=== PATIENT | female | born 1955 | race Caucasian/White ===

== ENCOUNTER 2018-04-16 19:24 | Emergency (ER) | payer OTHER ==
[~2018-04-16] VITALS: Ht 170.2 cm; Wt 89.4 kg
[2018-04-16 19:27] VITALS: BP 148/70
--- NOTE | 2018-04-16 20:55 | RAD ---
Indication:Fall. Pain over lateral aspect. 5th MT TECHNIQUE: 3 views of the left foot COMPARISON:None FINDINGS: There is nondisplaced fracture of the base of the fifth metatarsal seen. Overlying soft tissue swelling. IMPRESSION: Avulsion fracture of the base of the fifth metatarsal (pseudo-Brandon fracture). Electronically signed by: Juan Carlos Anderson DO (04/16/2018 8:52 PM) [facility]
[2018-04-16] MEDS ORDERED: HYDROcodone/APAP 5/325MG 1 TAB TABLET PO ONE (21:00)
--- NOTE | 2018-04-16 21:10 | PHYS DOC ---
Past Medical History Past Medical History: Anxiety, High Cholesterol, Hypertension, Hypothyroid, TIA Past Surgical History: Knee Replacement Additional Past Surgical Histo: RIGHT KNEE Alcohol Use: None Drug Use: None Adult General Chief Complaint Chief Complaint: FOOT INJURY PAIN HPI HPI Patient is a 62 year old female who presents with left foot injury. The patient had a mechanical fall earlier today. She relates that she has been inversion type injury of the left foot. She presents to the ER complaining of pain and swelling. Pain is swelling are located over the lateral aspect of the foot. She has been able to weight bear since the accident. Review of Systems Review of Systems Constitutional: Denies fever or chills Eyes: Denies change in visual acuity HENT: Denies nasal congestion Respiratory: Denies cough or shortness of breath Cardiovascular: No additional information not addressed in HPI GI: Denies abdominal pain : Denies dysuria or hematuria Musculoskeletal: Denies back pain Integument: Denies rash or skin lesions Neurologic: Denies headache Endocrine: Denies polyuria All other systems were reviewed and found to be within normal limits, except as documented in this note. Current Medications Current Medications Current Medications Medications (Trade) Dose Ordered Sig/Farida Start Time Stop Time Status Last Admin Dose Admin Acetaminophen/ Hydrocodone Bitart (Lortab 5/325) 2 tab 1X ONCE 04/16/18 21:00 04/16/18 21:01 DC Allergies Allergies Allergies Coded Allergies Type Severity Reaction Last Updated Verified Latex, Natural Rubber Allergy Unknown 04/16/18 Yes Penicillins Allergy Unknown 04/16/18 Yes erythromycin base Allergy Unknown 04/16/18 Yes Physical Exam Physical Exam Constitutional: Well developed, well nourished, no acute distress HENT: Normocephalic, atraumatic, bilateral external ears normal, oropharynx moist Neck: Normal range of motion Skin: Warm, dry Extremities: ecchymosis and swelling over lateral aspect of the left foot near the base of the 5th MT bone. 2+ dp pulses. Sensation to light touch intact over all dermatomes. Neurologic: Alert and oriented X 3 Psychologic: Affect normal Current Patient Data Vital Signs Vital Signs Date Time Temp Pulse Resp B/P (MAP) Pulse Ox O2 Delivery O2 Flow Rate FiO2 04/16/18 19:27 98.2 86 18 148/70 (96) 96 Room Air 98.2 EKG EKG [] Radiology/Procedures Radiology/Procedures [] Course & Med Decision Making Course & Med Decision Making Pertinent Labs and Imaging studies reviewed. (See chart for details) Patient is seen in the ER for injury to the left foot. Xray reveals avulsion fx off the base of the 5th MT bone. Patient is given the option of splint with crutches vs CAM boot walker. She opts for CAM boot walker. She already has pain medications at home for chronic pain which she will use. Not a candidate for NSAID meds 2/2 hx of reflux. Follow up with Dr. Meeks next week. Dragon Disclaimer Dragon Disclaimer This electronic medical record was generated, in whole or in part, using a voice recognition dictation system. Departure Departure Impression: Primary Impression: Fracture of 5th metatarsal Disposition: 01 HOME, SELF-CARE Condition: GOOD Referrals: JOSE MEEKS MD Patient Instructions: Metatarsal Fracture, Undisplaced KILO YOUNGBLOOD DO Apr 16, 2018 21:10
== END 2018-04-16 21:55 | disposition home or self-care (01) ==
LOC: ER 19:24
DX: S92.352A Displaced fracture of fifth metatarsal bone, left foot, initial encounter for closed fracture (principal); E78.00 Pure hypercholesterolemia, unspecified; I10 Essential (primary) hypertension; E03.9 Hypothyroidism, unspecified; Z86.73 Personal history of transient ischemic attack (TIA), and cerebral infarction without residual deficits; Z88.0 Allergy status to penicillin; Z88.1 Allergy status to other antibiotic agents; Z91.040 Latex allergy status; Z91.048 Other nonmedicinal substance allergy status; W18.30XA Fall on same level, unspecified, initial encounter; Y93.89 Activity, other specified; Y92.89 Other specified places as the place of occurrence of the external cause; Y99.8 Other external cause status
CPT/HCPCS: 29515; 73630; 99284